=== PATIENT | female | born 1965 | race African-American/Black ===

== ENCOUNTER 2018-12-24 08:17 | Emergency (ER) | payer MEDICARE, OTHER ==
[2018-12-24] MEDS ORDERED: Silver Nitrate Application 1 EACH ONE (08:27)
[2018-12-24] MEDS ORDERED: Silver Sulfadiazine 1% Cream 50 GM JAR ONE (08:28)
[2018-12-24] MEDS ORDERED: HYDROcodone/Acetaminophen 10/325 mg Tablet ONE (08:51)
== END 2018-12-24 09:16 | disposition home or self-care (01) ==
LOC: ERS 08:17
DX: T24.202A Burn of second degree of unspecified site of left lower limb, except ankle and foot, initial encounter (principal); I25.2 Old myocardial infarction; X10.0XXA Contact with hot drinks, initial encounter

== ENCOUNTER 2018-12-25 13:23 | Outpatient (CLI) | payer MEDICARE, OTHER ==
[~2018-12-25 13:23] MED LIST: Lidocaine 2% PF 100 mg/5 ml Syringe ONE; Sodium Chloride 0.9% 15 ML NEB ONE
--- NOTE | 2018-12-25 16:41 | HP ---
HISTORY OF PRESENT ILLNESS: Ms. Danni Mayer is a very pleasant 53-year-old, who [facility] for evaluation of second-degree rayo to the left medial ankle and left medial lower leg. The patient states that she spilled hot coffee on to her left lower extremity while drinking coffee in bed. The patient was seen in the emergency department. The patient states that her rayo were dressed with Silvadene, Telfa, and Kerlix. Also at this time, the patient was referred to the [facility] for further evaluation and treatment. The patient has no other complaints today. She denies any fever or chills. PAST MEDICAL HISTORY: Arthritis. PAST SURGICAL HISTORY: 1. Hysterectomy. 2. Right knee arthroscopy. MEDICATIONS: 1. [place]. 2. Gabapentin. 3. Lyrica. ALLERGIES: NO KNOWN DIAGNOSED ALLERGIES. SOCIAL HISTORY: Social history is significant for tobacco use of 1 pack of cigarettes per day for approximately 15 years. The patient states that she stopped smoking on 10/23/2018. The patient admits to only the rare consumption of alcohol. FAMILY HISTORY: Family history is significant for diabetes mellitus. The patient states her father and one cousin were both diagnosed with diabetes mellitus. Family history is also significant for coronary artery disease. The patient states that her grandmother was diagnosed with coronary artery disease. PHYSICAL EXAMINATION: VITAL SIGNS: Temperature 97.8, pulse 78, respirations 18, and blood pressure 142/94. GENERAL: A 53-year-old female, sitting on table in examination room, in no acute distress. HEENT: Normocephalic and atraumatic. NECK: No nuchal rigidity. CHEST: Clear to auscultation. CV: Regular rate and rhythm. ABDOMEN: Soft. EXTREMITIES: Two burn wounds of the left lower extremity are present over the left medial ankle and left medial lower leg. The dimensions of these wounds are approximately 3.0 x 3.0 cm and 8.0 x 6.0 cm. The larger wound is present over the left medial ankle. Nonviable tissue present within the margins of the larger wound was debrided with an excisional partial thickness debridement with the use of scissors. No purulent drainage is associated with either wound. No erythema of the skin surrounding either wound is present. No maceration of the skin of the periwound of either wound is noted. A dorsalis pedis pulse is palpable on the left. No significant edema of the left foot or lower leg is present on exam today. NEURO: Grossly nonfocal. ASSESSMENT AND PLAN: 1. Second-degree rayo of left lower extremity as described above. Dressing changes of Silvadene followed by gauze will be continued on a daily basis after cleansing and irrigation. Telfa will be utilized as needed at the time of dressing changes. The patient has been instructed to cleanse her burn wounds with dilute Hibiclens at the time of her dressing changes. No antibiotics will be prescribed today based upon the appearance of the wounds. The patient agrees to perform her dressing changes on a daily basis. She understands and is in agreement with the preceding treatment plan. I will see Ms. Mayer again in 1 week. 2. Arthritis. Job ID: [id number]
== END 2018-12-25 13:24 | disposition home or self-care (01) ==
LOC: WCC 13:23
PROVIDERS: ATTEND Family Medicine
DX: T24.202D Burn of second degree of unspecified site of left lower limb, except ankle and foot, subsequent encounter (principal); T25.212D Burn of second degree of left ankle, subsequent encounter; M19.90 Unspecified osteoarthritis, unspecified site
CPT/HCPCS: 97139; 97597; 97598; G0463; 99203; A4218; J2001

== ENCOUNTER 2019-01-01 12:51 | Outpatient (CLI) | payer MEDICARE, OTHER ==
[~2019-01-01 12:51] MED LIST changes: -Lidocaine 2% PF 100 mg/5 ml Syringe ONE
--- NOTE | 2019-01-01 14:42 | PRG ---
DATE OF SERVICE: 01/01/2019 HISTORY: Ms. Danni Mayer is a very pleasant 53-year-old, who presents to the [facility] for evaluation of second-degree rayo to the left medial ankle and left medial lower leg. The patient stated that she spilled hot coffee on to her left lower extremity while drinking coffee in bed. The patient was seen in the emergency department. The patient stated that her rayo were dressed with Silvadene, Telfa, and Kerlix. Also with this time, the patient was referred to the [facility] for further evaluation and treatment. The patient has no complaints today. She denies any fever or chills. PHYSICAL EXAMINATION: VITAL SIGNS: Temperature 97.9, pulse 89, respirations 16, and blood pressure 120/69. EXTREMITIES: Two burn wounds of the left lower extremity are present over the left medial ankle and left medial lower leg. The dimensions of these wounds are approximately 9.0 x 11.0 cm and 6.0 x 3.2 cm. No purulent drainage is associated with either wound. No erythema of the skin surrounding either wound is present. No maceration of the skin of the periwound of either wound is noted. A dorsalis pedis pulse is palpable on the left. No significant edema of the left foot or lower leg is present on exam today. ASSESSMENT AND PLAN: 1. Second-degree rayo of left lower extremity as described above. Dressing changes of Silvadene followed by gauze will be continued on a daily basis after cleansing and irrigation. Telfa will be continued as needed at the time of dressing changes. The patient has been provided with Hibiclens today. She has been instructed to cleanse her burn wounds with dilute Hibiclens at the time of her dressing changes. The patient is now receiving assistance with dressing changes by Home Health. I will see Ms. Mayer again in 2 weeks. 2. Arthritis. Job ID: [id number]
== END 2019-01-01 12:52 | disposition home or self-care (01) ==
LOC: WCC 12:51
PROVIDERS: ATTEND Family Medicine
DX: T25.212D Burn of second degree of left ankle, subsequent encounter (principal); M19.90 Unspecified osteoarthritis, unspecified site
CPT/HCPCS: 97602; A4218

== ENCOUNTER 2019-01-15 09:30 | Outpatient (CLI) | payer MEDICARE, OTHER ==
--- NOTE | 2019-01-15 11:42 | PRG ---
DATE OF SERVICE: 01/15/2019 SUBJECTIVE: Ms. Danni Mayer is a very pleasant 53-year-old, who presents to the [facility] for evaluation of second-degree rayo to the left lower leg. The patient has been receiving dressing changes of Silvadene for the wounds of her left lower leg with the assistance of Home Health. Telfa, ABDs, Kerlix, and an Arturo bandage are being utilized as secondary dressings. The patient denies any fever or chills. OBJECTIVE: VITAL SIGNS: Temperature 97.7, pulse 77, respirations 20, blood pressure 153/69. EXTREMITIES: Two wounds of the left lower leg remain. The dimensions of these wounds are approximately 1.0 x 1.0 cm and 2.7 x 2.2 cm. No purulent drainage is associated with either wound. No erythema of the skin surrounding either wound is present. No maceration of the skin of the periwound of either wound is noted. No significant edema of the left lower extremity is present on exam today. No burn wound cellulitis is present. ASSESSMENT AND PLAN: Second-degree rayo to left lower leg. Dressing changes of Silvadene will be continued with the assistance of Home Health. Telfa, ABDs, Kerlix, and an Arturo bandage will be continued as secondary dressings. The patient has been reassured that the burn wounds are healing without complications or any signs of infection. I will see Ms. Mayer again in 1 week. Job ID: [id number]
[2019-01-15] MEDS ORDERED: Sodium Chloride 0.9% 15 ML NEB ONE (17:03)
== END 2019-01-15 09:31 | disposition home or self-care (01) ==
LOC: WCC 09:30
PROVIDERS: ATTEND Family Medicine
DX: T24.202D Burn of second degree of unspecified site of left lower limb, except ankle and foot, subsequent encounter (principal)
CPT/HCPCS: A4218